=== PATIENT | male | born 1960 | race African-American/Black ===

== ENCOUNTER → 2018-03-27 | Day surgery (SDC) | payer SELFPAY ==
[2018-03-26 16:04] LABS: BASOPHILS % 0.3 % (0.0-1.0); EOSINOPHILS # (AUTO) 0.1 (0.0-0.4); EOSINOPHILS % 1.3 % (0.0-6.0); LYMPHOCYTES # (AUTO) 2.8 (1.0-3.2); LYMPHOCYTES % 37.4 % (18.0-39.1); MEAN CORPUSCULAR HEMOGLOBIN 28.6 pg (28-32); MEAN CORPUSCULAR HGB CONC 32.6 g/dL (31-35); MEAN CORPUSCULAR VOLUME 87.9 fL (81-99); MONOCYTES # (AUTO) 0.5 (0.2-0.8); MONOCYTES % 6.5 % (4.4-11.3); NEUTROPHILS # (AUTO) 4.1 (2.1-6.9); NEUTROPHILS % 54.2 % (38.7-80.0); PLATELET COUNT 197 x10e3/uL (140-360); RED BLOOD COUNT 4.89 x10e6/uL (4.3-5.7); RED CELL DISTRIBUTION WIDTH 12.1 % (11.7-14.4)
[2018-03-26 16:27] LABS: ANION GAP 12.7 mmol/L (8-16); BLOOD UREA NITROGEN 9 mg/dL (7-26); BUN/CREATININE RATIO 10 (6-25); CALCIUM 8.5 mg/dL (8.4-10.2); CARBON DIOXIDE 27 mmol/L (22-29); CHLORIDE 97 mmol/L (98-107); CREATININE, SERUM 0.88 mg/dL (0.72-1.25); EST GLOMERULAR FILTRATION RATE > 60 ML/MIN (60-); GLUCOSE 252 mg/dL (74-118); POTASSIUM 3.7 mmol/L (3.5-5.1); SODIUM 133 mmol/L (136-145)
[~2018-03-27] MED LIST: ACETAMINOPHEN/CODEINE 300MG - 30MG TAB ONE; AMLODIPINE BESY10 MG PO; ASPIRIN81 MG PO; BACITRACIN 50,000 UNIT VIAL ONE; BUPIVACAINE HCL 0.5% INJ 30 ML VIAL INJ ONE; CEFAZOLIN SOD 2 GM/D5W 50ML 50 ML IV ONE; DEXAMETHASONE SOD PHOS INJ 4 MG/ML VIAL ONE; FENTANYL CITRATE/PF 100MCG/2 ML INJ ONE; GLIMEPIRIDE2 MG PO; HYDRALAZINE HCL 20 MG/ML VIAL ONE; HYDROCHLOROTHIA25 MG PO; INSULIN REGULAR, HUMAN 100 UNIT/1 ML 3ML VIAL ONE; KETOROLAC TROMETHAMINE 30 MG/ML VIAL ONE; LIDOCAINE HCL 2% LOCAL INJ 5 ML SDV VIAL INJ ONE; LOSARTAN POTAS100 MG PO; METFORMIN HCL500 MG PO; MIDAZOLAM HCL 2 MG/2 ML VIAL ONE; ONDANSETRON HCL INJ 2 MG/ML VIAL ONE; PROPOFOL IV EMULSION 10 MG/ML 20 ML VIAL ONE; ROCURONIUM BROMIDE 10 MG/ML 5ML VIAL ONE; SEVOFLURANE INHAL SOLN 250 ML PEN BTL ONE; SIMVASTATIN40 MG PO; ZETIA10 MG PO
--- NOTE | 2018-03-27 17:17 | Operative Report ---
DATE OF PROCEDURE: March 27, 2018 PREOPERATIVE DIAGNOSES 1. Bilateral inguinal hernias. 2. Ventral hernia. POSTOPERATIVE DIAGNOSES 1. Bilateral inguinal hernias. 2. Ventral hernia. PROCEDURES 1. Repair of bilateral inguinal hernias with mesh. 2. Repair of ventral hernia. PIECER UP: None. ANESTHESIA: General. INDICATIONS AND FINDINGS: The patient is a 58-year-old male who presented with complaints of a bulge in the right groin and also above his umbilicus. Exam revealed bilateral inguinal hernias with a hernia above the umbilicus. At surgery the patient was found to have bilateral direct hernias and a ventral hernia above the umbilicus above the area of previous umbilical hernia repair. TECHNIQUE: After adequate general anesthesia, patient in supine position, the abdomen and groin areas were prepped and draped in sterile fashion with ChloraPrep solution. Starting on the right side, a transverse incision was made in the right inguinal area and carried down through the subcutaneous tissue and Vanessa's fascia until the external oblique fascia was seen. This was opened in the direction of its fibers through the external ring. The ilioinguinal nerve was identified and preserved. The spermatic cord was dissected free from the floor of the inguinal canal. There was a herniated mass with associated cord. This was dissected free from the spermatic cord. It was found to be a direct hernia. It was dissected free down to the floor of the inguinal canal. There was no evidence of an indirect hernia sac. The floor of the inguinal canal was opened up through the direct hernia defect and the herniated mass reduced beneath the fascia. Hernia was then repaired using a Prolene mesh system. A large Prolene mesh system was soaked in antibiotic solution. It was then placed through the hernia defect with the underlay patch opened up in the preperitoneal space. Onlay patch was laid over the floor of the inguinal canal with a keyhole opening created to allow exit of the spermatic cord. The onlay patch was sutured to the shelving edge of the inguinal ligament laterally and conjoined tendon medially. This was done with interrupted sutures of 0 Prolene. Care was taken not to entrap the genitofemoral or iliohypogastric nerves. Once the mesh was in place, the spermatic cord and ilioinguinal nerve were returned to their normal positions. The wound was inspected for hemostasis, which was seen to be adequate. The external oblique fascia was then closed with a running suture of 2-0 Vicryl. Care was taken not to entrap the spermatic cord or ilioinguinal nerve. Vanessa's fascia was closed with a running suture of 0 Vicryl. Skin was closed with a running subcuticular suture of 4-0 Vicryl. Attention was then turned to the left groin. A transverse incision was made in the left inguinal area, carried down through subcutaneous tissue and Vanessa's fascia until the external oblique fascia was seen. This was opened in the direction of its fibers through the external ring. The ilioinguinal nerve was identified and preserved. The spermatic cord was dissected free from the floor of the inguinal canal and dissected free from what was found to be a direct hernia. The cremasteric fibers were opened. There was no evidence of an indirect hernia sac. The direct herniated mass was dissected free from the surrounding tissues down to the fascia. The floor of the inguinal canal was opened up through the direct hernia defect. The herniated mass was reduced beneath the fascia. A large Prolene mesh hernia system which had been soaked in antibiotic solution was placed through the hernia defect with the underlay patch opened up in the preperitoneal space. Onlay patch was laid over the floor of the inguinal canal with a keyhole opening created to allow exit of the spermatic cord. The onlay patch was sutured to the shelving edge of inguinal ligament laterally and conjoined tendon medially. This was done with interrupted sutures of 0 Prolene. Care was taken not to entrap the genitofemoral or iliohypogastric nerves. Once the mesh was in place, the spermatic cord and ilioinguinal nerve were returned to their normal positions. The wound was inspected for hemostasis, which was seen to be adequate. The wound was then infiltrated with 1/2 percent Marcaine. The external oblique fascia was then closed with a running suture of 2-0 Vicryl. Care was taken not to entrap the spermatic cord or ilioinguinal nerve. Vanessa's fascia was closed with a running suture of 3-0 Vicryl. Skin was closed with a running subcuticular suture of 4-0 Vicryl. An incision was then made above the umbilicus, carried down through the subcutaneous tissue. Herniated mass was identified. This was dissected free from the surrounding tissues and subcutaneous tissue down to the fascia. It was freed from the fascia throughout the circumference of the hernia defect, and the herniated mass was then reduced beneath the fascia. The hernia was above the umbilicus in the fascial defect of approximately 1.8 cm. This was closed directly transversely with a running suture of 0 Prolene. Hemostasis was seen to be adequate. The wound was then infiltrated with 1/2 percent Marcaine. Subcutaneous tissue was closed with a running suture of 3-0 Vicryl, and the skin was closed with a running subcuticular suture of 4-0 Vicryl. Dermabond and a sterile dressing were applied to each wound. The patient tolerated the procedure well. Estimated blood loss was 15 mL. There were no complications. All counts were correct. The patient was taken to the recovery room in satisfactory condition. Job#: [id number] EV cc:YANI MORAN DO
[2018-03-27 17:35] VITALS: BP 162/91
== END | disposition home or self-care (01) ==
LOC: OR 12:20
PROVIDERS: ATTEND Surgery
DX: K40.20 Bilateral inguinal hernia, without obstruction or gangrene, not specified as recurrent (principal); K43.9 Ventral hernia without obstruction or gangrene; I10 Essential (primary) hypertension; E11.9 Type 2 diabetes mellitus without complications; Z79.84 Long term (current) use of oral hypoglycemic drugs; Z01.810 Encounter for preprocedural cardiovascular examination; Z01.812 Encounter for preprocedural laboratory examination; Z79.82 Long term (current) use of aspirin
CPT/HCPCS: 36415 ×2; 49505; 49560; 80048; 82948; 85025; 93005; C1781; J0360; J0690; J1100; J1885; J2001; J2250; J2405; J2704